=== PATIENT | male | born 1960 | race African-American/Black ===

== ENCOUNTER → 2020-05-11 | Outpatient (CLI) | payer OTHER | LOC: RAD 10:21 | PROVIDERS: ATTEND Orthopaedic Surgery | DX: M47.817 Spondylosis without myelopathy or radiculopathy, lumbosacral region (principal); M48.07 Spinal stenosis, lumbosacral region; M41.86 Other forms of scoliosis, lumbar region; M46.07 Spinal enthesopathy, lumbosacral region ==